=== PATIENT | male | born 1965 ===

== ENCOUNTER 2017-04-09 13:58 | Emergency (ER) | payer OTHER ==
[2017-04-09 14:03] VITALS: TEMP 98.3
[2017-04-09] MEDS ORDERED: Lidocaine 5% Patch TD STA (14:40)
[2017-04-09] MEDS ORDERED: Lidocaine 5% Patch TD ONE (14:46)
--- NOTE | 2017-04-09 14:46 | C.PDOC ---
History Of Present Illness 51 y/o male presents to ED with complains of lower back pain for 3 days. 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 Patient states he took unknown pain medication last night with no relief. Patient reports pain is localized to medial aspect of lower back and denies wekaness, numbness, fever, bowel/bladder incontinence, saddle anesthesia or any other complaints at this time. Time Seen by Provider: 04/09/17 14:25 Chief Complaint (Nursing): Back Pain History Per: Patient History/Exam Limitations: no limitations Onset/Duration Of Symptoms: Days Current Symptoms Are (Timing): Still Present Quality Of Discomfort: Sharp Previous Symptoms: Back Pain Past Medical History Reviewed: Historical Data, Nursing Documentation, Vital Signs Vital Signs: Last Vital Signs Temp 98.3 F 04/09/17 14:01 Pulse 64 04/09/17 14:01 Resp 20 04/09/17 14:01 BP 130/83 04/09/17 14:01 Pulse Ox 99 04/09/17 14:47 - Medical History PMH: No Chronic Diseases Surgical History: No Surg Hx Family History: States: No Known Family Hx - Social History Hx Tobacco Use: No Hx Alcohol Use: No Hx Substance Use: No - Immunization History Hx Tetanus Toxoid Vaccination: No Hx Influenza Vaccination: No Hx Pneumococcal Vaccination: No Review Of Systems Constitutional: Negative for: Fever, Chills Gastrointestinal: Negative for: Nausea, Vomiting Genitourinary: Negative for: Dysuria, Incontinence, Hematuria Musculoskeletal: Positive for: Back Pain. Negative for: Neck Pain Skin: Negative for: Rash Neurological: Negative for: Weakness, Numbness Physical Exam - Physical Exam Additional Physical Exam Comments: Constitutional: No acute distress. WDWN. Head: Normocephalic. Atraumatic. Eyes: PERRL. EOMI. ENT: Moist mucous membranes. Neck: Supple. Cardiovascular: Regular rate and rhythm. Chest: No tenderness. Respiratory: Clear to auscultation bilaterally. GI: Soft. Nontender. Nondistended. Normoactive bowel sounds. No rebound. No guarding. Back: (+) bilateral paralumbar tenderness (+)Paraspinal tenderness Musculoskeletal: No tenderness or swelling of extremities. Skin: No rash. Neurologic: Alert, no focal deficit. Normal Sensation. Normal Motor ED Course And Treatment O2 Sat by Pulse Oximetry: 99 (RA) Pulse Ox Interpretation: Normal Medical Decision Making Medical Decision Making: pt reports decreased pain after patch, ibuprofen and muscle relaxant. will d/c home with medications and pmd f/u Disposition Counseled Patient/Family Regarding: Diagnosis, Need For Followup, Rx Given - Disposition Referrals: [facility] [Outside] [facility] [Outside] Disposition: HOME/ ROUTINE Disposition Time: 15:24 Condition: IMPROVED Additional Instructions: Luther ibuprofeno segn lo prescrito. Luther relajante muscular segn lo prescrito. No conduzca ni maneje maquinaria cuando tome relajante muscular. Use parches en reas dolorosas sruthi 12 horas en la piel, luego 12 horas antes de aplicar el parche nuevo. Florencio un seguimiento con nguyen mdico o en la clnica mdica la pr xima semana. evite levantar objetos pesados y doblar. Take ibuprofen as prescribed. Take muscle relaxant as prescribed. Do not drive or operate machinery when taking muscle relaxant. Use patches to painful areas for 12 hours on skin, then 12 hours off before applying new patch. Follow up with your medical doctor or in medical clinic next week. 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 - Scribe Statement The provider has reviewed the documentation as recorded by the Amitaibserena Curran All medical record entries made by the Scribe were at my direction and personally dictated by me. I have reviewed the chart and agree that the record accurately reflects my personal performance of the history, physical exam, medical decision making, and the department course for this patient. I have also personally directed, reviewed, and agree with the discharge instructions and disposition.
[2017-04-09 15:57] VITALS: BP 124/75; PULSE 65; RESP 18; O2SAT 98
== END 2017-04-09 15:58 | disposition home or self-care (01) ==
LOC: C.ER 13:58
DX: S33.5XXA Sprain of ligaments of lumbar spine, initial encounter (principal); X58.XXXA Exposure to other specified factors, initial encounter
CPT/HCPCS: 96372; 99283; J1885